=== PATIENT | female | born 1965 | race Two or more races ===

== ENCOUNTER 2016-11-13 22:09 | Emergency (ER) | payer MEDICAID ==
[~2016-11-13] VITALS: Ht 160 cm; Wt 59.0 kg
[2016-11-13] MEDS ORDERED: ONDANSETRON ODT 4 MG TAB.RAPDIS SL ONE (23:00)
[2016-11-13] MEDS ORDERED: ONDANSETRON ODT 4 MG TAB.RAPDIS ONE (23:00)
[2016-11-13] MEDS ORDERED: HYDROCODONE/APAP 10-325 MG TABLET PO ONE (23:00)
[2016-11-13] MEDS ORDERED: HYDROCODONE/APAP 10-325 MG TABLET ONE (23:01)
--- NOTE | 2016-11-14 00:14 | NUR ---
Patient discharged to home in stable conditon. Written and verbal after care instructions given. Patient verbalizes understanding of instructions.
== END 2016-11-14 00:16 | disposition home or self-care (01) ==
LOC: ER 22:19
DX: M25.512 Pain in left shoulder (principal); W22.8XXA Striking against or struck by other objects, initial encounter; Y93.89 Activity, other specified; Y99.8 Other external cause status; Y92.89 Other specified places as the place of occurrence of the external cause
CPT/HCPCS: 73030; A4663; Q0162